=== PATIENT | male | born 1965 | race African-American/Black ===

== ENCOUNTER 2017-01-04 17:31 | Emergency (ER) | payer OTHER ==
[~2017-01-04] VITALS: Ht 180.3 cm; Wt 81.0 kg
[2017-01-04 17:41] VITALS: Ht 180.3 cm; Wt 81.0 kg
[2017-01-04] MEDS ORDERED: HYDROmorphONE 1 MG/ML SYG IV STA (18:20)
[2017-01-04] MEDS ORDERED: ONDANSETRON 4 MG INJ IV STA (18:20)
[2017-01-04] MEDS ORDERED: SOD CHLORIDE 0.9% 1,000 ML IV STA (18:20)
[2017-01-04 19:04] LABS: BASOPHIL # 0.1 10^3/ul (0.0-0.1); BASOPHILS % 0.9 % (0.0-2.0); EOSINOPHILS # 0.3 10^3/ul (0.0-0.5); EOSINOPHILS % 3.2 % (0.0-7.0); HEMATOCRIT 47.1 % (42.0-52.0); HEMOGLOBIN 15.5 g/dl (14.0-18.0); LYMPHOCYTES # 4.6 10^3/ul (0.8-2.9); LYMPHOCYTES % 56.3 % (15.0-51.0); MEAN CORPUSCULAR HGB CONC 32.9 g/dl (32.0-37.0); MEAN CORPUSCULAR VOLUME 88.2 fl (82.0-101.0); MEAN PLATELET VOLUME 8.9 fl (7.4-10.4); MONOCYTE # 0.5 10^3/ul (0.3-0.9); MONOCYTES % 6.6 % (0.0-11.0); NEUTROPHILS % 32.9 % (39.0-77.0); PLATELET COUNT 308 10^3/UL (140-415); RED BLOOD COUNT 5.34 10^6/ul (4.70-6.10); RED CELL DISTRIBUTION WIDTH 13.1 % (11.5-14.5); WHITE BLOOD COUNT 8.2 10^3/ul (4.8-10.8)
[2017-01-04 19:21] LABS: INR 1.02; PROTIME 13.4 Sec (12.2-14.2)
[2017-01-04 19:23] LABS: ALBUMIN 4.4 g/dl (3.3-4.9); ALBUMIN/GLOBULIN RATIO 0.86; CREATININE 0.85 mg/dl (0.61-1.24); POTASSIUM 4.4 mmol/L (3.5-5.1); TOTAL PROTEIN 9.5 g/dl (6.1-8.1)
--- NOTE | 2017-01-04 19:23 | RADRPT ---
PROCEDURE: CT abdomen and pelvis without IV contrast. CLINICAL INDICATION: Abdominal pain TECHNIQUE: CT scan of the abdomen and pelvis without contrast was performed on the [employer] volumetric [address] scanner. The patient was scanned without intravenous contrast. Coronal and sagittal refo rmatted images were obtained from the axial source images. The CTDI vol is 12.15 mGy and the DLP is 764.45 mGy-cm. One or more of the following dose reduction techniques were used: Automated exposure control. Adjustment of the mA and/or kV according to patient size. Use of iterative reconstruction technique. COMPARISON: None. FINDINGS: CT abdomen: The lung bases are clear. The heart size is not enlarged and is without pericardial thickening or e ffusion. Healed bilateral rib fractures are seen. The liver is normal in size and density and is without focal mass or intrahepatic biliary dilatation . The spleen is normal in size and homogeneous in density. The stomach is grossly unremarkable. T he pancreas as visualized is normal. The gallbladder and biliary tree are unremarkable and there is no evidence for common bile duct dilatation. The adrenal glands are symmetric and normal. The kid neys are symmetrically unremarkable as well. 2 mm nonobstructing bilateral renal calculi are seen. N o obstructive uropathy or mass lesion is seen. The aorta is of normal in caliber. There is no retroperitoneal lymphadenopathy. The zoey hepatis region is clear. A left lower quadrant stoma is seen in the descending colon. Scattered diverticul a are seen in the proximal transverse colon, descending colon, sigmoid colon without evidence of div erticulitis. The large bowel is stool-filled. The small and large bowel and mesentery, as visualize d, are otherwise unremarkable. The normal appendix is identified. CT pelvis: The pelvic organs are normal. The pelvic sidewalls and inguinal regions are clear. No pelvic mass, lymphadenopathy, or free fluid is seen. No acute inflammation is seen. The urinary bladder is wit hin normal limits. Postsurgical changes in the lower thoracic spine are incompletely visualized. Mild degenerative lee nges in the lumbar spine is seen. No osteolytic or osteoblastic lesion is detected. IMPRESSION: 1. No acute pathology in the abdomen and pelvis. 2. Left lower quadrant stoma containing the distal small bowel. 3. Stool filled large bowel with colonic diverticulosis. 4. 2 mm nonobstructing bilateral renal calculi. RPTAT: HPNM Satya Huynh, Physician Date Time Electronically viewed and signed by Satya Huynh, Physician on 01/04/2017 19:23 /
[2017-01-04] MEDS ORDERED: IBUP-1542 PO (19:44)
[2017-01-04 23:09] VITALS: BP 116/64; PULSE 89; RESP 19; TEMP 98.3
--- NOTE | 2017-01-06 07:20 | ERD ---
ER Documentation Chief Complaint Date/Time DATE: 01/06/17 TIME: 07:18 Chief Complaint BIB RA C/O LLQ ABDOMINAL PAIN X 1 DAY, DENIES NAUSEA/VOMITING. HPI 51-year-old man brought in by [employer] officers for medical clearance, he is already in [facility] and has a history of colon ostomy. He states he has left lower abdominal pain and cramping 1 day. He has had no fevers or chills, no vomiting or diarrhea, no melena or blood in the colostomy bag. ROS All systems reviewed and are negative except as per history of present illness. Medications Home Meds Active Scripts Ibuprofen* (Ibuprofen*) 600 Mg Tablet, 600 MG PO Q8 for PAIN AND/OR INFLAMMATION , #30 TAB Prov:CHITO IRIZARRY MD 01/04/17 Allergies Allergies: Coded Allergies: No Known Allergy (Unverified , 01/04/17) PMhx/Soc Surgical: Ostomy with bag History of Surgery: Yes (BACK, COLOSTOMY, ORIF L ARM) Anesthesia Reaction: No Hx Neurological Disorder: No Hx Respiratory Disorders: No Hx Cardiac Disorders: No Hx Psychiatric Problems: No Hx Miscellaneous Medical Probl: No Hx Alcohol Use: No Hx Substance Use: No Hx Tobacco Use: No Smoking Status: Former smoker FmHx Family History: No diabetes Physical Exam Vitals Vital Signs Date Time Temp Pulse Resp B/P Pulse Ox O2 Delivery O2 Flow Rate FiO2 01/04/17 23:09 98.3 89 19 116/64 100 Room Air 01/04/17 18:35 97.9 116 19 122/78 100 Room Air 01/04/17 17:41 98.9 111 20 110/64 100 Physical Exam GENERAL: Well-developed, well-nourished, well-hydrated, in no apparent distress , looks nontoxic in appearance HEENT: Moist mucous membranes, pink conjunctiva, no cervical spine tenderness or step-off deformities, no goiter, no jaundice or icterus, extraocular movements intact without pain. No submandibular induration, and no pharyngeal erythema NEURO: Alert and oriented 3, cranial nerves II through XII intact bilaterally, pupils equal round reactive to light, no focal deficits or facial asymmetry, sensation intact distally Strength 5/5 in upper and lower extremities bilaterally CARDIAC: Regular rate and rhythm, no murmurs rubs or gallops LUNGS: Clear bilaterally no wheezing crackles or stridor ABDOMEN: Soft nontender, no guarding, no rigidity, no rebound, no psoas sign no obturator sign. Normoactive bowel sounds SKIN: Warm and dry to touch, no abrasions, contusions, or hematomas, no lacerations, no ecchymosis, no target lesions, and without ulcers EXTREMITIES: No clubbing cyanosis or edema, calves are bilaterally symmetrical, no Homans sign, no popliteal cord sign. Distal pulses equal and bilateral PSYCH: Normal affect without agitation or irritability Result Diagram: 01/04/17184001/04/171840 Results 24 hrs Laboratory Tests Test 01/04/17 18:41 White Blood Count 8.210^3/ul Red Blood Count 5.3410^6/ul Hemoglobin 15.5g/dl Hematocrit 47.1% Mean Corpuscular Volume 88.2fl Mean Corpuscular Hemoglobin 29.0pg Mean Corpuscular Hemoglobin Concent 32.9g/dl Red Cell Distribution Width 13.1% Platelet Count 34730^3/UL Mean Platelet Volume 8.9fl Neutrophils % 32.9% Lymphocytes % 56.3% Monocytes % 6.6% Eosinophils % 3.2% Basophils % 0.9% Nucleated Red Blood Cells % 0.0/100WBC Neutrophils # (Manual) 2.710^3/ul Lymphocytes # 4.610^3/ul Monocytes # 0.510^3/ul Eosinophils # 0.310^3/ul Basophils # 0.110^3/ul Nucleated Red Blood Cells # 0.010^3/ul Prothrombin Time 13.4Sec Prothrombin Time Ratio 1.0 INR International Normalized Ratio 1.02 Sodium Level 142mmol/L Potassium Level 4.4mmol/L Chloride Level 105mmol/L Carbon Dioxide Level 27mmol/L Anion Gap 14 Blood Urea Nitrogen 15mg/dl Creatinine 0.85mg/dl Glucose Level 89mg/dl Calcium Level 10.0mg/dl Total Bilirubin 0.0mg/dl Direct Bilirubin 0.00mg/dl Indirect Bilirubin 0.0mg/dl Aspartate Amino Transf (AST/SGOT) 48IU/L Alanine Aminotransferase (ALT/SGPT) 65IU/L Alkaline Phosphatase 137IU/L Total Protein 9.5g/dl Albumin 4.4g/dl Globulin 5.10g/dl Albumin/Globulin Ratio 0.86 Lipase 60U/L Current Medications Medications (Trade) Dose Ordered Sig/Vivian Route PRN Reason Start Time Stop Time Status Last Admin Dose Admin Sodium Chloride (NS) 1,000 ml @ 1,000 mls/hr Q1H STAT IV 01/04/17 18:20 01/04/17 19:19 DC 01/04/17 18:56 Hydromorphone HCl (Dilaudid) 1 mg ONCE STAT IV 01/04/17 18:20 01/04/17 18:21 DC 01/04/17 18:57 Ondansetron HCl (Zofran Inj) 4 mg ONCE STAT IV 01/04/17 18:20 01/04/17 18:21 DC 01/04/17 18:57 Procedures/MDM IV line was established patient was placed on monitoring coordinator rhythm strip revealed a sinus rhythm at about 80 bpm with upright P and T waves. Patient was afebrile. I administered 1 L normal saline intravenously, hydromorphone 1 mg IV and Zofran [address] scan of abdomen and pelvis was unremarkable. Please refer to radiologist dictation for full report. CBC and electrolytes are normal, liver function tests are normal. Differential diagnoses considered, included but not limited to acute coronary syndrome, pulmonary embolism, aortic dissection, abdominal aortic aneurysm, sepsis, stroke, meningitis, encephalitis, pneumonia, appendicitis, cholecystitis , bowel obstruction, pyelonephritis, nephrolithiasis, cystitis, as well as metabolic, hematologic, and electrolyte abnormalities. As well as abscess, cellulitis, fractures, and dislocations. Patient feels much better at this time, and vital signs are normal, symptoms have improved. I did give strict instructions to return to the ED if symptoms continue or worsen, patient will otherwise follow-up with primary care physician. Patient understood instructions and agreed to plan. Disclaimer: Inadvertent spelling and grammatical errors are likely due to EHR/ dictation software use and do not reflect on the overall quality of patient care. Also, please note that the electronic time recorded on this note does not necessarily reflect the actual time of the patient encounter. Departure Diagnosis: Primary Impression: Abdominal pain Abdominal location: lower abdomen, unspecified Qualified Code: R10.30 - Lower abdominal pain Condition: Good Patient Instructions: Abdominal Pain CHITO IRIZARRY MD Jan 06, 2017 07:20
== END 2017-01-04 23:11 ==
LOC: E/R 17:31
DX: R10.32 Left lower quadrant pain (principal); Z87.891 Personal history of nicotine dependence
CPT/HCPCS: 36415; 74176; 80053; 83690; 85025; 85610; 96374; 96375; 99285; J1170; J2405; J7030